=== PATIENT | female | born 1970 | race Caucasian/White ===

== ENCOUNTER 2016-08-13 15:43 | Emergency (ER) | payer SELFPAY ==
[2016-08-13 16:15] VITALS: BMI 43.3
--- NOTE | 2016-08-13 16:36 | DIRPT ---
CLINICAL DATA: Fever cough body aches for 2 days EXAM: CHEST 2 VIEW COMPARISON: 04/30/2016 FINDINGS: Limited inspiratory effect. Heart size upper normal. Vascular pattern normal. No consolidation or effusion. Mild interstitial prominence in the lingula similar to prior study. This is also unchanged from 04/14/2015. IMPRESSION: Mild stable lingular scarring. No acute findings. Electronically Signed By: Monty Reyes M.D. On: 08/13/2016 16:34
[2016-08-13] MEDS ORDERED: IBUPROFEN 800 MG TAB PO ONE (17:04)
[2016-08-13] MEDS ORDERED: Albuterol/Ipratropium Neb 3 ML NEB NEB ONE (17:06)
--- NOTE | 2016-08-13 17:07 | EDPRACDOC ---
- General Information Chief Complaint: Flu-Like Symptoms Stated Complaint: FEVER/DIZZINESS/ACHING Time Seen by Provider: 08/13/16 16:51 Information Source: Patient Home Medications: Home Medications Ibuprofen 600 mg PO TID #20 tablet 05/20/16 Oxycodone Immediate Release [Oxycodone Immediate Release (OxyIR)] 5 mg PO Q6H PRN #30 tab 05/20/16 Sulfamethoxazole/Trimethoprim [Bactrim Ds Tablet] 1 tab PO BID #14 tab 05/20/16 Azithromycin [Zithromax] 0 mg PO DAILY #6 tablet 08/13/16 Benzonatate [Tessalon] 200 mg PO TID #20 capsule 08/13/16 Prednisone [Sterapred Ds] 10 mg PO DIR #21 pack 08/13/16 Allergies/Adverse Reactions: Allergies Allergy/AdvReac Type Severity Reaction Status Date / Time No Known Allergies Allergy Verified 08/13/16 16:15 - History of Present Illness Onset: 2 DAYS HPI: PT C/O FEVER COUGH CONGESTION RUNNY NOSE LEFT EARACHE FOR SEVERAL DAYS. PRODUCTIVE SPUTUM YELLOW. Shortness of Breath: None Relevant History of: Reports: None Cough: Reports: Productive, Yellow Rhinorrhea: Reports: Clear Fever Severity/Quality: Reports: greater than 100.5 F Ear Symptoms: Reports: Earache (LEFT) Associated Signs & Symptoms: Reports: Cough, Fever, Nasal Symptoms, Myalgia, Other (LEFT EARACHE) Oral Intake: Normal Urinary Output: Normal ED Past Medical History - History Reviewed Yes Nurses notes reviewed and agree except as marked Travel Outside of [place] in the Last 3 Months?: No - Patient Medical History Cardiac History: Reports: Hypertension, Hypercholesterolemia Respiratory History: Reports: COPD GI/ History: Reports: Urinary Tract Infection, Gastroesophageal Reflux Psychological History: Denies: Depression Systemic History: Reports: Diabetes - Social Medical History Smoking Status: Heavy tobacco smoker (5 or more cigarettes/day or daily pipe/ cigar) ETOH: None Substance Abuse: None Lives With: Other Lives In: Home EDM Review of Systems - Review of Systems ROS Negative Except as Marked: Yes All systems reviewed and were negative except as marked Constitutional: Chills, Fever, Weakness. negative: Fatigue, Loss of Appetite Eyes: No Symptoms Reported. negative: Redness, Blurred Vision, Double Vision, Discharge, Pain, Light Sensitive, Photophobia Ears: Pain (LEFT). negative: Drainage, Ear Pulling, Hearing Loss Throat: No Symptoms Reported. negative: Pain, Swelling Nose: Congestion. negative: Abrasion, Bleeding, Discharge, Deformity, Ecchymosis, Injection, Laceration, Swelling, Tender Mouth: No Symptoms Reported. negative: Pain, Drooling Respiratory: Cough, Shortness of Breath, Sputum (YELLOW). negative: Barky Cough , Brassy Cough, Hemoptysis Cardiovascular: No Symptoms Reported. negative: Chest Pain, Palpitations, Syncope, Edema, Orthopnea, PND, Skin Mottling, Cyanosis Gastrointestinal: No Symptoms Reported. negative: Pain, Constipation, Nausea, Vomiting, Diarrhea, Melena, Formula Intolerance Genitourinary: No Symptoms Reported. negative: Dysuria, Hematuria, Frequency, Discharge, Bleeding, Testicular Pain, Neurological: No Symptoms Reported. negative: Headache, Dizziness, Seizure, Numbness, Weakness, Speech Difficulty, Gait Difficulty Musculoskeletal: No Symptoms Reported. negative: Neck, Chestwall, Ribs, Back, Shoulder, Arm, Elbow, Forearm, Wrist, Hand, Pelvis, Hip, Femur, Knee, Leg, Ankle , Foot Integumentary: No Symptoms Reported. negative: Itching, Rash, Bruising, Wound Allergic/Immunologic: No Symptoms Reported. negative: Hives, Itching Hematologic: No Symptoms Reported. negative: Lymphadenopathy, Easy Bruising, Easy Bleeding Endocrine: No Symptoms Reported. negative: Weight Gain, Weight Loss Psychiatric: No Symptoms Reported. negative: Anxiety, Depression, Hallucinations, Insomnia, Suicidal - Physical Exam Constitutional: No apparent distress, Alert (Awake) Oriented to: Time, Person, Place Last recorded Vital Signs: Last Vital Signs Temp 101.2 F H 08/13/16 16:11 Pulse 105 08/13/16 16:11 Resp 20 08/13/16 16:11 BP 140/85 08/13/16 16:11 Pulse Ox 94 08/13/16 16:11 Oxygen Pulse Oxygen Saturation 94 O2 Device Room Air Oxygen Flow Rate Fraction of Inspired Oxygen ( FIO2) - HEENT Head: Normal ( normocephalic) Eye Exam: Normal (PERRL, EOMI, Sclera white) Oropharynx: Normal (Pharynx:Moist without exudate,Gums-no swelling) Tympanic Membrane: Dull (LEFT) ENT EAC: Normal TMJ: Normal Nose: No Symptoms Reported (septum midline) Neck: Normal (FROM, trachea at midline) - Respiratory/Cardiovascular Respiratory: Diminished, Wheezes (BILATERAL) Cardiovascular: Tachycardia (106 AT BEDSIDE) - GI Auscultation: Normal (NABS) Palpation: Normal (Soft,No rebound or guarding, non distended) Tenderness: Non tender Espinoza's Sign: Negative - Musculoskeletal Back: Normal (Non-Tender) Extremities: Normal (Normal tone, Pulses 2+ No cyanosis or edema, FROM) - Integumentary Skin: Normal, Warm, Dry Lymphatics: Normal (no adenopathy) - Neurologic Memory Impaired: Normal Motor Function: Normal (Normal tone, Pulses 2+ No cyanosis or edema, FROM) Cranial Nerve: Normal (CN II-X11 intact sensation, strength 5/5) Cerebellar: Normal Mood Description: Normal Perception: Normal - Differential Diagnosis Bronchitis, Influenza A B, Pneumonia, URI, Viral - Results Microbiology 08/13/16 16:16 Influenza Type A Antigen Screen - Final N/P - Naso/Pharyngeal NEGATIVE Please note: A NEGATIVE result does not exclude an influenza virus infection. It is a presumptive result and, if required, confirmation should be done using either a virus culture or an FDA-cleared influenza A&B molecular assay. ("NORMAL" value = "NEGATIVE".) Influenza Type B Antigen Screen - Final NEGATIVE Please note: A NEGATIVE result does not exclude an influenza virus infection. It is a presumptive result and, if required, confirmation should be done using either a virus culture or an FDA-cleared influenza A&B molecular assay. ("NORMAL" value = "NEGATIVE".) - Diagnostic Imaging CXR Image interpreted by: Radiologist IMPRESSION: Mild stable lingular scarring. No acute findings. Decision Time to Discharge: 17:55 - Departure Disposition: Home Condition: Stable Final Diagnosis: Bronchopneumonia Instructions: Acute Bronchitis (ED), Community Acquired Pneumonia (ED) Education/Counseling Given To: Patient Education/Counseling Given Regarding: Diagnosis, Treatment, Prognosis, Follow Up Referrals: Lake Aguilar MD [Primary Care Provider] - One Week Prescriptions: Azithromycin [Zithromax] 0 mg PO DAILY #6 tablet Benzonatate [Tessalon] 200 mg PO TID #20 capsule Prednisone [Sterapred Ds] 10 mg PO DIR #21 pack Additional Instructions: RETURN FOR WORSE OR DIFFERENT SYMPTOMS.
[2016-08-13 18:06] VITALS: BP 152/82; PULSE 108; TEMP 100
== END 2016-08-13 18:08 | disposition home or self-care (01) ==
LOC: EDMC 15:43
DX: J18.0 Bronchopneumonia, unspecified organism (principal); I10 Essential (primary) hypertension; E78.00 Pure hypercholesterolemia, unspecified; J44.9 Chronic obstructive pulmonary disease, unspecified; K21.9 Gastro-esophageal reflux disease without esophagitis; E11.9 Type 2 diabetes mellitus without complications; F17.200 Nicotine dependence, unspecified, uncomplicated
CPT/HCPCS: 71020; 87804; 94640; 99283; J3490; J7620